=== PATIENT | female | born 2000 | race Caucasian/White ===

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

== ENCOUNTER 2018-01-03 11:40 | Emergency (ER) | payer BC, OTHER ==
[2018-01-03 11:56] VITALS: BP 113/64
--- NOTE | 2018-01-03 12:12 | UC ---
Throat Pain/Nasal Rajat HPI - HPI Summary HPI Summary: She was sick with viral illness a few weeks ago and then felt better and completely resolved for 3 days. She then started getting congestion and today has lost her voice. No cough or fever. No focal pain. - History of Current Complaint Chief Complaint: UCGeneralIllness Stated Complaint: CONGESTION, COUGH Time Seen by Provider: 01/03/18 11:54 Hx Obtained From: Patient Hx Last Menstrual Period: 12/07/17 Onset/Duration: Gradual Onset, Lasting Days, Still Present Severity: Moderate Pain Intensity: 5 Cough: None Associated Signs & Symptoms: Positive: Dysphagia. Negative: Fever, Vomiting, Rash - Allergies/Home Medications Allergies/Adverse Reactions: Allergies Allergy/AdvReac Type Severity Reaction Status Date / Time No Known Allergies Allergy Verified 01/03/18 11:56 Home Medications: Home Medications NK [No Home Medications Reported] 01/03/18 [History Confirmed 01/03/18] PMH/Surg Hx/FS Hx/Imm Hx Previously Healthy: No - asthma. - Surgical History Surgical History: Yes Surgery Procedure, Year, and Place: T&A, 2014, [place]; Right Fifth Finger Pins , 2016, [facility] - Family History Known Family History: Positive: None, Cardiac Disease, Hypertension, Other - asthma - Social History Alcohol Use: None Substance Use Type: None Smoking Status (MU): Never Smoked Tobacco Have You Smoked in the Last Year: No Household Exposure Type: Cigarettes - Immunization History Most Recent Influenza Vaccination: Not the 2015/2016 Season Vaccination Up to Date: Yes Review of Systems ENT: Sore Throat, Sinus Congestion All Other Systems Reviewed And Are Negative: Yes Physical Exam Triage Information Reviewed: Yes Appearance: Well-Appearing, No Pain Distress, Well-Nourished Vital Signs: Initial Vital Signs Temp 98.6 F 01/03/18 11:52 Pulse 86 01/03/18 11:52 Resp 20 01/03/18 11:52 BP 113/64 01/03/18 11:52 Pulse Ox 100 01/03/18 11:52 Vital Signs Reviewed: Yes Eyes: Positive: Conjunctiva Clear ENT: Positive: Hearing grossly normal, Pharynx normal, Nasal congestion, TM bulging, Hoarse voice, Uvula midline. Negative: Pharyngeal erythema, Nasal drainage, TM dull, TM red, Tonsillar swelling, Tonsillar exudate, Trismus, Muffled voice, Sinus tenderness Neck: Positive: Supple, Nontender, No Lymphadenopathy. Negative: Nuchal Rigidity Respiratory: Positive: Lungs clear, Normal breath sounds, No respiratory distress, No accessory muscle use. Negative: Respiratory distress, Decreased breath sounds, Accessory muscle use, Crackles, Rhonchi, Stridor, Wheezing Cardiovascular: Positive: No Murmur, Pulses Normal, Brisk Capillary Refill Abdomen Description: Positive: No Organomegaly, Soft. Negative: Distended, Guarding Musculoskeletal: Positive: Strength Intact, ROM Intact, No Edema Neurological: Positive: Alert, Muscle Tone Normal. Negative: Fatigued Psychological: Positive: Age Appropriate Behavior Skin: Negative: rashes Throat Pain/Nasal Course/Dx - Differential Dx/Diagnosis Provider Diagnoses: uri viral. viral laryngitis. Discharge - Sign-Out/Discharge Documenting (check all that apply): Discharge/Admit/Transfer - Discharge Plan Condition: Good Disposition: HOME Patient Education Materials: Laryngitis (ED) Forms: *Work Release Referrals: Faith Martinez NP [Primary Care Provider] - If Needed - Billing Disposition and Condition Condition: GOOD Disposition: Home
== END 2018-01-03 12:13 | disposition home or self-care (01) ==
LOC: UCCORT 11:40
DX: J06.9 Acute upper respiratory infection, unspecified (principal); J04.0 Acute laryngitis; B97.89 Other viral agents as the cause of diseases classified elsewhere
CPT/HCPCS: 99211; G0463

== ENCOUNTER 2018-02-11 11:55 | Emergency (ER) | payer BC, OTHER ==
[2018-02-11 12:15] VITALS: BP 122/64
--- NOTE | 2018-02-11 13:21 | RAD ---
Indication: Ankle injury. 3 views of the right ankle demonstrates soft tissue swelling laterally. There is no fracture or dislocation. IMPRESSION: Soft tissue swelling laterally without fracture.
--- NOTE | 2018-02-11 13:22 | RAD ---
Indication: Right foot pain. 3 views of the right foot demonstrates no fracture. No other bone or joint abnormality is identified. IMPRESSION: No fracture of the right foot is noted.
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
== END 2018-02-11 14:08 | disposition home or self-care (01) ==
LOC: UCCORT 11:55
DX: S93.401A Sprain of unspecified ligament of right ankle, initial encounter (principal); X50.1XXA Overexertion from prolonged static or awkward postures, initial encounter; Y93.9 Activity, unspecified; Y92.9 Unspecified place or not applicable
CPT/HCPCS: 99213; G0463

== ENCOUNTER 2019-03-17 11:25 | Emergency (ER) | payer BC ==
[2019-03-17 11:43] VITALS: BP 130/64
--- NOTE | 2019-03-17 12:13 | UC ---
Eye Complaint HPI - HPI Summary HPI Summary: Left eye stye/blisters on upper eyelid. Itchy and irritated, denies pain. No changes in vision. - History of Current Complaint Chief Complaint: UCEye Stated Complaint: EYE COMPLAINT Time Seen by Provider: 03/17/19 12:06 Hx Obtained From: Patient, Family/Fur Glazer Hx Last Menstrual Period: 02/06/18 ?: No Onset/Duration: Sudden Onset, Lasting Days Timing: Constant Severity Initially: Mild Severity Currently: Mild Pain Intensity: 0 Location of Injury: Eye Lid (upper) Associated Signs And Symptoms: Positive: Negative - Allergies/Home Medications Allergies/Adverse Reactions: Allergies Allergy/AdvReac Type Severity Reaction Status Date / Time No Known Allergies Allergy Verified 03/17/19 11:41 Home Medications: Home Medications Pnv No.95/Ferrous Fum/Folic AC [ Multivitamin Tablet] 1 each PO DAILY [History Confirmed 03/17/19] PMH/Surg Hx/FS Hx/Imm Hx Previously Healthy: Yes - Surgical History Surgical History: Yes Surgery Procedure, Year, and Place: T&A, 2013, [place]. Right Fifth Finger Pins, 2016, [facility] - Family History Known Family History: Positive: None, Cardiac Disease, Hypertension, Other - asthma - Social History Alcohol Use: None Substance Use Type: None Smoking Status (MU): Never Smoked Tobacco Have You Smoked in the Last Year: No Household Exposure Type: Cigarettes - Immunization History Most Recent Influenza Vaccination: Not the 2016/2016 Season Most Recent Tetanus Shot: UTD Vaccination Up to Date: Yes Review of Systems All Other Systems Reviewed And Are Negative: Yes Constitutional: Positive: Negative Skin: Positive: Negative Eyes: Positive: Eye Redness, Other - bumps on eye ENT: Positive: Negative Is Patient Immunocompromised?: No Physical Exam Triage Information Reviewed: Yes Appearance: Well-Appearing, Well-Nourished, Pain Distress Vital Signs: Initial Vital Signs Temp 97.9 F 03/17/19 11:41 Pulse 99 03/17/19 11:41 Resp 16 03/17/19 11:41 BP 130/64 03/17/19 11:41 Pulse Ox 100 03/17/19 11:41 Vital Signs Reviewed: Yes Eyes: Positive: Conjunctiva Inflamed, Other: - large stye with pus filled center on lash line of left eye erythema and swelling of the left upper lid, extending around the lateral asepct of the eye to the lower lid. Dental Exam: Normal Neck exam: Normal Respiratory Exam: Normal Cardiovascular Exam: Normal Abdominal Exam: Normal Bowel Sounds: Positive: Present Musculoskeletal Exam: Normal Neurological Exam: Normal Psychological Exam: Normal Skin Exam: Normal Eye Complaint Course/Dx - Course Course Of Treatment: hx obtained, exam performed ,meds reviewed, - Differential Dx/Diagnosis Provider Diagnosis: Stye external, Periorbital cellulitis Discharge ED - Sign-Out/Discharge Documenting (check all that apply): Patient Departure All imaging exams completed and their final reports reviewed: No Studies - Discharge Plan Condition: Stable Disposition: HOME Patient Education Materials: Periorbital Cellulitis in Adults (ED) Referrals: Flora Martinez NP [Primary Care Provider] - Additional Instructions: 1. Take the medication as prescribed. 2. Continue with warm compresses 3. Bactrim is safe in the second trimester of 4. Follow up with flora Gomez if not improving. - Billing Disposition and Condition Condition: STABLE Disposition: Home
== END 2019-03-17 12:26 | disposition home or self-care (01) ==
LOC: UCCORT 11:25
DX: H00.014 Hordeolum externum left upper eyelid (principal); L03.213 Periorbital cellulitis
CPT/HCPCS: 99212; G0463

== ENCOUNTER 2019-05-26 07:40 | Emergency (ER) | payer BC ==
[2019-05-26 07:54] VITALS: BP 124/60
--- NOTE | 2019-05-26 08:04 | UC ---
Shoulder Pain HPI - HPI Summary HPI Summary: 19 yo at 33 weeks GA who awoke with left shoulder pain x 2 days ago without history of injury. She has limited range of motion, and also reports some tingling sensation around the wrist area, not in the digits, and unrelated to movement. This began after sleeping with her arm elevated on 2 pillows, along with increased discomfort in the left elbow area. Has been using alternate heat and ice with some relief of pain. - History of Current Complaint Chief Complaint: UCUpperExtremity Stated Complaint: LT ARM PAIN Time Seen by Provider: 05/26/19 07:51 Hx Obtained From: Patient Hx Last Menstrual Period: september 26, 2018 ?: Yes Onset/Duration: Gradual Onset, Lasting Days - 2 Timing: Constant Severity Initially: Mild Severity Currently: Moderate Pain Intensity: 7 Character: Aching Aggravating Factor(s): Movement - painful and limited in all direction. Alleviating Factor(s): Rest, Ice Associated Signs And Symptoms: Positive: Negative, Numbness/Tingling - small area on dorsal wrist.. Negative: Fever, Weakness Related History: Dominant Hand Right - Risk Factors Non-Orthopedic Risk Factor: Negative DVT Risk Factors: Negative Septic Arthritis Risk Factor: Negative - Allergies/Home Medications Allergies/Adverse Reactions: Allergies Allergy/AdvReac Type Severity Reaction Status Date / Time No Known Allergies Allergy Verified 05/26/19 07:47 PMH/Surg Hx/FS Hx/Imm Hx Previously Healthy: Yes - Surgical History Surgical History: Yes Surgery Procedure, Year, and Place: T&A, 2013, [place]. Right Fifth Finger Pins, 2016, [facility] - Family History Known Family History: Positive: None, Cardiac Disease, Hypertension, Other - asthma - Social History Occupation: Unemployed Lives: With Family Alcohol Use: None Substance Use Type: None Smoking Status (MU): Never Smoked Tobacco Have You Smoked in the Last Year: No Household Exposure Type: Cigarettes - Immunization History Most Recent Influenza Vaccination: Not the 2016/2017 Season Most Recent Tetanus Shot: UTD Vaccination Up to Date: Yes Review of Systems All Other Systems Reviewed And Are Negative: Yes Constitutional: Positive: Negative Skin: Positive: Negative Eyes: Positive: Negative ENT: Positive: Negative Respiratory: Positive: Negative. Negative: Cough Cardiovascular: Negative: Chest Pain Gastrointestinal: Positive: Negative Genitourinary: Positive: Negative Motor: Positive: Decreased ROM Neurovascular: Positive: Negative Musculoskeletal: Positive: Arthralgia Neurological: Positive: Negative Is Patient Immunocompromised?: No Physical Exam Triage Information Reviewed: Yes Appearance: Well-Appearing, Pain Distress - none at rest, reports pain with all movement. Vital Signs: Initial Vital Signs Temp 98.1 F 05/26/19 07:48 Pulse 108 05/26/19 07:48 Resp 16 05/26/19 07:48 BP 124/60 05/26/19 07:48 Pulse Ox 100 05/26/19 07:48 Eye Exam: Normal ENT: Positive: Normal ENT inspection Neck exam: Other - No central midline tenderness. Full rom in the cervical spine with pain in the left upper trapezium with palpation, rotation to the right and lateral bending to the left. Neck: Positive: Supple, Nontender, No Lymphadenopathy Respiratory: Positive: Lungs clear, Normal breath sounds Cardiovascular: Positive: RRR, No Murmur Musculoskeletal: Positive: No Edema, ROM Limited @ - left shoulder--pain with passive movement of the shoulder with abduction greater than 30 degrees, forward flexion greater than 20 degrees. Neurological: Positive: Alert, Muscle Tone Normal Psychological Exam: Normal Skin Exam: Normal Shoulder Course/Dx - Course Course Of Treatment: ice, heat alternately, with passive rom exercises. Offered PT referral but she declined. - Differential Dx/Diagnosis Differential Diagnosis/HQI/PQRI: Bursitis, Rotator Cuff Injury, Strain Provider Diagnosis: Sprain of left shoulder Discharge ED - Sign-Out/Discharge Documenting (check all that apply): Patient Departure All imaging exams completed and their final reports reviewed: No Studies - Discharge Plan Condition: Good Disposition: HOME Patient Education Materials: Shoulder Sprain (ED) Referrals: Faith Martinez NP [Primary Care Provider] - Additional Instructions: Continue use of alternating heat and ice to the left shoulder. You can use acetaminophen for pain if needed. As reviewed, please ensure that you gently remove the shoulder through a pendulum range of motion to avoid tightening of the shoulder capsule. Follow up with your primary care doctor if pain persists to consider a physical therapy referral. - Billing Disposition and Condition Condition: GOOD Disposition: Home
== END 2019-05-26 08:27 | disposition home or self-care (01) ==
LOC: UCCORT 07:40
DX: S43.402A Unspecified sprain of left shoulder joint, initial encounter (principal); X58.XXXA Exposure to other specified factors, initial encounter; Y92.9 Unspecified place or not applicable
CPT/HCPCS: 99211; G0463

== ENCOUNTER 2019-06-30 06:10 | Inpatient (IN) | payer BC ==
[2019-06-30] MEDS ORDERED: Buffered Lidocaine 1% SYRIN* 1 ML/SYRINGE INTRADERM ONE (08:35)
[2019-06-30] MEDS ORDERED: Lactated Ringers 1000 ML Bag* 1,000 ML IV ONE ×2 (08:35→22:34)
--- NOTE | 2019-06-30 08:51 | HP ---
General Information - Reason for Visit Patient reports large gush of clear fluid approx 0120. Contractions beginning some time later and starting to become more intense. - General Information Maternal Age: 19 Grav: 1 Para: 0 SAB: 0 IEA: 0 Estimated Due Date: 07/11/19 Determined By: LMP Maternal Blood Type and Rh: B Negative - Results this Serology/RPR Result: Non-Reactive Rubella Result: Immune HBsAg Result: Negative HIV Result: Negative GBS Culture Result: Negative Past Medical History Delivery History: See Records Delivery History Comment: No previous pregnancies Pertinent Past Medical History: See Records Past Medical History Comment: Left dermoid ovarian cyst Pertinent Past Surgical History: See Records Past Surgical History Comment: Appendectomy 02/2018 Right hand sx 08/2015: closed reduction and percutaneous pinning 5th metacarpal Tonsillectomy 2014 Pertinent Family History: Non-Contributory - Antepartal Records Antepartal Records: Reviewed, Complicated by: - Early cervical funneling reported on outside facility sono but not on follow up; left dermoid cyst; Rh negative. Review of Systems Constitutional: Uncomfortable CV Complaint: No Respiratory: Shortness of Breath: No Gastrointestinal: Nausea, Soft Stool Genitourinary: Leaking Fluid, Spotting Musculoskeletal: Back Pain, Contractions Neurological: No Headache, No Visual Changes Movement: Normal Exam Allergies/Adverse Reactions: Allergies No Known Allergies Allergy (Verified 06/30/19 06:16) BP 141/82, repeat 134/80 T 98.2 HR 95 RR 18 O2 100% - Measurements Height: 5 ft 3 in Weight: 180 lb Weight in lbs: [id number] Body Mass Index (BMI): 31.8 Pre- Weight: 200 lb Weight Gained This : -20 lbs and 0 ozs - Exam Breast: Breast Exam Deferred CVA: No CVA Tenderness Extremities: No Edema Heart: Normal Rhythm/Heart Sounds HEENT: No Significant Findings Lungs: Clear Bilaterally Rectal: Rectal Exam Deferred Reflexes: DTR 2+, - - no clonus Thyroid: - - WNL on entry to [facility] - Abdominal Exam Abdomen Exam: Non-Tender, Fundal Height Consistent with Dates - Ultrasound/Biophysical Profile Ultrasound Status: Not Done Targeted Exam Findings Estimated Weight: 7.5-8lb Cervical Exam: 2cm Effacement: 90% Station: 0 Presenting Part: Vertex Membrane Status: SROM Amniotic Fluid Evaluation: Gross Rupture Bleeding/Discharge: Bloody Show EFM Findings - External Monitor Findings Baseline Heart Rate: 145 External Monitor Findings: Accelerations Present, Variability Moderate Contractions: Regular, Mild, 45-90 Seconds Assessment/Plan - Assessment IUP @ 38+4 weeks gestation with spontaneous rupture of membranes in early labor. No evidence acidemia - Plan Plan: Admit - Anticipate Vaginal Delivery Plan Comment: Admit to L&D. Encourage movement, upright positions. Consider hydrotherapy, nitrous and may desire epidural. Anticipate SVB. - Date/Time of Admission Date of Admission: 06/30/19 Time of Admission: 08:34
[2019-06-30] MEDS ORDERED: Lactated Ringers 1000 ML Bag* 1,000 ML IV SCH (09:00)
[2019-06-30 10:38] LABS: Urine Benzodiazepine Screen None Detected (None Detect); Urine Opiates Screen None Detected (None Detect)
--- NOTE | 2019-06-30 11:39 | PN ---
Progress Note - Progress Note Date of Service: 06/30/19 Note: S: Feeling ok, reports she was up on ball for a while but was tired and dozed/ napped a little. Feels ctx are farther apart but a little stronger. O: VE deferred FHT 130 UCs q 5-8 min VSS, afebrile A: IUP @ 38+3 weeks gestation in early labor Spontaneous rupture of membranes No evidence acidemia P: PARQ discussion pitocin for augmentation. Questions answered, patient prefers to try to get up and moving again, eat lunch and will reconsider.
[2019-06-30] MEDS ORDERED: Oxytocin in LR* 20 UNITS/1,000 ML BAG IVPB SCH (14:00)
--- NOTE | 2019-06-30 14:07 | PN ---
Progress Note - Progress Note Date of Service: 06/30/19 Note: S: Had a short episode of lightheadedness, resolved with food intake. States she feels that ctx are still somewhat "stronger" but spaced out Feeling more low pelvic/rectal pressure. O: VE deferred FHT 135, + accels, no decels, mod la BP 123/66, HR 102, T 98.4 UCs q 5-8 min? Difficult to trace A: IUP @ 38+3 weeks gestation in early labor Spontaneous rupture of membranes No evidence acidemia P: Discussed low-dose pitocin augmentation, patient in agreement. Still encourage upright position and ambulation.
[2019-06-30 15:09] LABS: ABS Eosinophils 0.2 10^3/ul (0-0.6); ABS Lymphocytes 3.3 10^3/ul (1.0-4.8); ABS Monocytes 0.7 10^3/ul (0-0.8); ABS Neutrophils 8.9 10^3/ul (1.5-7.7); Eosinophil % 1.3 %; Hematocrit 27 % (35-47); Hemoglobin 9.1 g/dL (12.0-16.0); Lymphocyte % 25.3 %; Mean Corpuscular HGB Conc 34 g/dL (31-36); Mean Corpuscular Hemoglobin 26 pg (27-31); Mean Corpuscular Volume 77 fL (80-97); Mean Platelet Volume 8.6 fL (7.4-10.4); Nucleated Red Blood Cells % 0.2; Platelet Count 357 10^3/uL (150-450); Red Cell Distribution Width 15 % (10-15); White Blood Count 13.1 10^3/uL (3.5-10.8)
--- NOTE | 2019-06-30 17:21 | PN ---
Progress Note - Progress Note Date of Service: 06/30/19 Note: S: Patient reports contractions now quite a bit stronger, especially after she took a walk around unit. Mom, grandmother with her at bedside in addition to partner. O: VE 4cm/100/0 FHT 150, possible early vs variable decels, mod variability Pitocin @ 6 VSS A: IUP in early labor Doubt acidemia P: Patient will try tub for pain management. Will bolus 500ml for possible dehydration. Decrease pitocin to 4miU
[2019-06-30] MEDS ORDERED: OBEPIDURAL* 250 ML EPIDURAL ONE (21:42)
[2019-06-30] MEDS ORDERED: Bupivacaine 0.25% SDV PF* 10 ML VIAL INJ ONE (22:11)
[2019-06-30] MEDS ORDERED: EPHEDrine (Pressors)* 50 MG/ML VIAL IV PUSH PRN (22:34)
[2019-06-30] MEDS ORDERED: Famotidine TAB* 20 MG PO PRN (22:34)
[2019-06-30] MEDS ORDERED: Sodium Citrate/Citric Acid* 15 ML UDC PO PRN (22:34)
[2019-06-30] MEDS ORDERED: Phenylephrine 40 MCG/ML SYRINGE IV PUSH PRN (22:34)
[2019-06-30] MEDS ORDERED: OBEPIDURAL* 250 ML EPIDURAL SCH (23:00)
[2019-06-30] MEDS: Lactated Ringers 1000 ML Bag* 1,000 ML IV SCH (23:49)
--- NOTE | 2019-07-01 02:17 | PN ---
Progress Note - Progress Note Date of Service: 07/01/19 Note: S: Patient reports sleeping some, comfortable with epidural, feeling slightly more pressure. O: VE 8cm/100/0 Schultz balloon below pubic bone, manually moved up FHT 135, + accels, no decels, mod la UCs q2 min T 98.0, BP 130/66 A: IUP in labor Ruptured membranes x 25 hours Epidural No evidence acidemia P: Continue to rest with position changes side to side. Anticipate SVB.
[2019-07-01] MEDS: Lactated Ringers 1000 ML Bag* 1,000 ML IV SCH (04:29)
[2019-07-01] MEDS ORDERED: Ibuprofen TAB* 600 MG ONE (09:23)
[2019-07-01] MEDS ORDERED: RHO D Immune Globulin (HUMAN)* 300 MCG = 1,500 I.U. INJ IM ONE (09:55)
[2019-07-01] MEDS ORDERED: Misoprostol TAB* 200 MCG PR ONE (09:55)
[2019-07-01] MEDS ORDERED: Glycerin ADULT SUPP PR PRN (09:55)
[2019-07-01] MEDS ORDERED: Witch Hazel PAD* JAR TOPICAL PRN (09:55)
[2019-07-01] MEDS ORDERED: Dibucaine 1% 28.35 GM TUBE PR PRN (09:55)
--- NOTE | 2019-07-01 09:55 | PROCNOTE ---
[facility] OB: Delivery Note - Delivery A Date of : 07/01/19 Time of : 08:42 [place] Sex: Male - "Guero" Weight at : 8 lb 9 oz Score 1 Minute: 4 Score 5 Minutes: 8 Gestational Age in Weeks and Days at Delivery: 38 Weeks and 4 Days Delivery Method: Spontaneous Vaginal Labor: Spontaneous - augmentation with IV pitocin for spontaneous rupture of membranes Did Patient attempt ?: N/A, No Previous Amniotic Fluid: Clear Estimated Blood Loss: 300 Anesthesia/Analgesia: CEI for Labor - placed by Dr. Scherer, Nitrous-Labor Delivered By: Praful Glynn - Assisted by Lakshmi Gomez MD - Nursery Level of Nursery: NICU - Perineum Perineal Injury: Abrasion Only - Not Repaired Perineal Repair: None - Events Delivery Events of Note: Pitocin During Labor, Shoulder Dystocia - x 1 minute. Resolved with Jax, Carroll Corkscrew and MD delivery of posterior arm, Pushed > 3 Hours - Additional Delivery Notes Additional Delivery Notes: Pt admitted with spontaneous rupture of membranes to clear fluid. Received IV pitocin augmentation with expected progression to complete. Length of labor 17 hours, 48 min. Pushed x 3.5 hours. liveborn male. Slow, controlled delivery of head. OA to WARD. Shoulder dystocia identified. Mother put in Jax and emergency light brought Dr. Gomez, neonatology and additional staffing associate to bedside. Shoulder dystocia x 1 min resolved with Carroll Corkscrew and MD delivery of posterior arm. Nuchal cord x 1 reduced after delivery. Infant initially stunned. Cord clamped x 2 and cut. Delivered to waiting resident care assistant and special care RN. Apgars 4/8. currently in NICU for observation of broken humerus which will be braced and infant expected to return to bedside. CNM called away for another delivery. MD assumed care for delivery of placenta. See MD notes.
[2019-07-01] MEDS ORDERED: Lactated Ringers 1000 ML Bag* 1,000 ML IV SCH (10:00)
--- NOTE | 2019-07-01 10:32 | PN ---
Progress Note - Progress Note Date of Service: 07/01/19 - Delivery note continued bv Note: Called to room emergently for shoulder dystocia. Pt already in McRobert's position and competitive intelligence analyst attempted holbrook corkscrew. Upon my arrival the posterior ( left arm) was palpated and delivered followed by the shoulders and the rest of the body. The baby was placed on mom's abdomen. See competitive intelligence analyst delivery note for full details. She was then called to another delivery and I delivered the placenta with gentle cord traction and fundal massage. There was increased bleeding after placental delivery so the uterus was massaged and pt was given 800mcg of cytotec rectally with good improvement in bleeding. There were b/l periurethral lacerations which were hemostatic and therefore, not repaired. There was then good hemostasis with fundus firm. Baby had been taken to the NICU for further manaement and mom was stable.
[2019-07-01] MEDS: Ibuprofen TAB* 600 MG PO SCH ×3 (15:02→18:29)
[2019-07-01] MEDS: Docusate CAP* 100 MG PO SCH ×2 (16:35→20:43)
[2019-07-02] MEDS: Acetaminophen TAB* 325 MG PO PRN ×3 (00:07→23:14)
[2019-07-02] MEDS: Ibuprofen TAB* 600 MG PO SCH ×3 (00:13→16:50)
[2019-07-02 05:42] LABS: ABS Basophils 0.1 10^3/ul (0-0.2); ABS Eosinophils 0.1 10^3/ul (0-0.6); ABS Lymphocytes 3.9 10^3/ul (1.0-4.8); ABS Monocytes 0.9 10^3/ul (0-0.8); ABS Neutrophils 13.1 10^3/ul (1.5-7.7); Eosinophil % 0.8 %; Hematocrit 21 % (35-47); Hemoglobin 6.8 g/dL (12.0-16.0); Lymphocyte % 21.4 %; Mean Corpuscular HGB Conc 33 g/dL (31-36); Mean Corpuscular Hemoglobin 26 pg (27-31); Mean Corpuscular Volume 78 fL (80-97); Mean Platelet Volume 8.1 fL (7.4-10.4); Nucleated Red Blood Cells % 0.1; Platelet Count 281 10^3/uL (150-450); Red Blood Count 2.66 10^6 /uL (3.70-4.87); Red Cell Distribution Width 15 % (10-15)
[2019-07-02] MEDS: Docusate CAP* 100 MG PO SCH ×3 (07:28→21:41)
[2019-07-02] MEDS: Ferrous Gluconate TAB* 324 MG TAB PO SCH (21:40)
[2019-07-03] MEDS: Ibuprofen TAB* 600 MG PO SCH ×2 (03:35→03:36)
[2019-07-03 06:44] LABS: ABS Eosinophils 0.4 10^3/ul (0-0.6); ABS Lymphocytes 3.4 10^3/ul (1.0-4.8); ABS Monocytes 0.6 10^3/ul (0-0.8); ABS Neutrophils 6.8 10^3/ul (1.5-7.7); Eosinophil % 3.9 %; Hematocrit 21 % (35-47); Lymphocyte % 29.9 %; Mean Corpuscular HGB Conc 34 g/dL (31-36); Mean Corpuscular Hemoglobin 26 pg (27-31); Mean Corpuscular Volume 78 fL (80-97); Platelet Count 304 10^3/uL (150-450); Red Blood Count 2.67 10^6 /uL (3.70-4.87); Red Cell Distribution Width 15 % (10-15); White Blood Count 11.4 10^3/uL (3.5-10.8)
[2019-07-03 07:21] VITALS: BP 132/75
[2019-07-03] MEDS: Ferrous Gluconate TAB* 324 MG TAB PO SCH (09:13)
[2019-07-03] MEDS: Docusate CAP* 100 MG PO SCH (09:13)
== END 2019-07-03 11:42 | disposition home or self-care (01) | DRG 560 ==
LOC: MCHOBOUT 06:10 → MCHOB 08:34
PROVIDERS: ADMIT Midwife; ATTEND Midwife
PROC: 10E0XZZ Delivery of Products of Conception, External Approach (ICD-10-PCS; principal; 2019-07-01)
PROC: 4A1HXCZ Monitoring of Products of Conception, Cardiac Rate, External Approach (ICD-10-PCS; 2019-07-01)
DX: O69.81X0 Labor and delivery complicated by cord around neck, without compression, not applicable or unspecified (principal); Z37.0 Single live birth; O99.89 Other specified diseases and conditions complicating pregnancy, childbirth and the puerperium; D27.1 Benign neoplasm of left ovary; O71.82 Other specified trauma to perineum and vulva; O66.0 Obstructed labor due to shoulder dystocia; O90.81 Anemia of the puerperium; Z67.21 Type B blood, Rh negative; Z3A.38 38 weeks gestation of pregnancy
CPT/HCPCS: 36415; 80307; 85025; 85461; 86850; 86900; 86901; A9270-GY; J2790; J3490

== ENCOUNTER 2019-09-08 12:18 | Emergency (ER) | payer BC ==
[2019-09-08 13:12] VITALS: BP 128/57
--- NOTE | 2019-09-08 13:13 | UC ---
Respiratory Complaint HPI - HPI Summary HPI Summary: 19 year old female presents with complaint of sore throat yesterday that has now resolved, headache, bilateral ear pain, runny nose, and cough that started today. Denies fever, chills nor sob. - History of Current Complaint Chief Complaint: UCRespiratory Stated Complaint: CONGESTION, COUGH Time Seen by Provider: 09/08/19 13:12 Hx Last Menstrual Period: 08/25/2019 Onset/Duration: Sudden Onset, Lasting Days - 1 Pain Intensity: 3 - Allergies/Home Medications Allergies/Adverse Reactions: Allergies Allergy/AdvReac Type Severity Reaction Status Date / Time No Known Allergies Allergy Verified 09/08/19 13:07 Home Medications: Home Medications Control Pill 1 tab PO DAILY 09/08/19 [History] PMH/Surg Hx/FS Hx/Imm Hx Previously Healthy: Yes - Surgical History Surgical History: Yes Surgery Procedure, Year, and Place: Appendectomy, 2017, [place]; Right Fifth Metacarpal Pins s/p Fracture, 2016, [place]; T&A, 2013, [place] - Family History Known Family History: Positive: None, Cardiac Disease, Hypertension, Other - asthma - Social History Alcohol Use: None Substance Use Type: None Smoking Status (MU): Never Smoked Tobacco Have You Smoked in the Last Year: No Household Exposure Type: Cigarettes - Immunization History Most Recent Influenza Vaccination: fall 2018 Most Recent Tetanus Shot: UTD Most Recent Pneumonia Vaccination: none Vaccination Up to Date: Yes Review of Systems All Other Systems Reviewed And Are Negative: Yes Constitutional: Positive: Negative Skin: Positive: Negative Eyes: Positive: Negative ENT: Positive: Sore Throat - for one day, now resolved., Nasal Discharge Respiratory: Positive: Cough - dry. Negative: Shortness Of Breath Cardiovascular: Positive: Negative Gastrointestinal: Positive: Negative Genitourinary: Positive: Negative Motor: Positive: Negative Neurovascular: Positive: Negative Musculoskeletal: Positive: Negative Neurological/Mental Status: Positive: Negative Psychological: Positive: Negative Is Patient Immunocompromised?: No Physical Exam Triage Information Reviewed: Yes Appearance: Well-Appearing, Well-Nourished Vital Signs: Initial Vital Signs Temp 98.8 F 09/08/19 13:06 Pulse 88 09/08/19 13:06 Resp 16 09/08/19 13:06 BP 128/57 09/08/19 13:06 Pulse Ox 100 03/01/20 13:06 Vital Signs Reviewed: Yes ENT: Positive: Pharynx normal, Nasal congestion, TMs normal. Negative: Sinus tenderness Neck: Positive: Supple, Nontender, No Lymphadenopathy Respiratory: Positive: Lungs clear, Normal breath sounds. Negative: No respiratory distress, Crackles, Rhonchi, Wheezing Cardiovascular: Positive: RRR, No Murmur Abdomen Description: Positive: Nontender, Soft Musculoskeletal Exam: Normal Neurological Exam: Normal Psychological Exam: Normal Skin Exam: Normal Skin: Positive: Rashes Respiratory Course/Dx - Differential Dx/Diagnosis Provider Diagnosis: Viral upper respiratory infection Discharge ED - Sign-Out/Discharge Documenting (check all that apply): Patient Departure All imaging exams completed and their final reports reviewed: No Studies - Discharge Plan Condition: Stable Disposition: HOME Patient Education Materials: Upper Respiratory Infection (DC) Referrals: Faith Martinez NP [Primary Care Provider] - Additional Instructions: Drink plenty of fluids, you may take Robitussin DM as needed for cough and Tylenol for aches/pain. Follow-up with your primary care physician if your symptoms persist or worsen. - Billing Disposition and Condition Condition: STABLE Disposition: Home
== END 2019-09-08 13:27 | disposition home or self-care (01) ==
LOC: UCCORT 12:18
DX: J06.9 Acute upper respiratory infection, unspecified (principal)
CPT/HCPCS: 99211; G0463